=== PATIENT | male | born 1990 | race African-American/Black ===

== ENCOUNTER 2016-12-27 02:05 | Emergency (ER) | payer MEDICARE, OTHER ==
[~2016-12-27] VITALS: Ht 188 cm; Wt 89.0 kg
[~2016-12-27 02:05] MED LIST: DIVA500T7 PO; [UNRECOGNIZED DRUG - REMARK] PO; [UNRECOGNIZED DRUG - REMARK] PO
[2016-12-27 02:20] VITALS: Ht 188 cm; Wt 89.0 kg
[2016-12-27] MEDS ORDERED: BACI28.34 TOP (04:09)
[2016-12-27] MEDS ORDERED: ACET500C5 PO (04:09)
[2016-12-27] MEDS ORDERED: IBUP400T22 PO (04:09)
[2016-12-27] MEDS ORDERED: ACETAMINOPHEN 325 MG TAB PO ONE (04:30)
[2016-12-27] MEDS ORDERED: HC30CR25 TOP (04:38)
[2016-12-27 04:41] VITALS: BP 135/95; PULSE 71; RESP 20
--- NOTE | 2016-12-27 05:03 | ERD ---
ER Documentation Chief Complaint Date/Time DATE: 12/27/16 TIME: 05:02 Chief Complaint Foot callus and bug bites or rash HPI 26-year-old male comes in with foot calluses to both of his feet, also bug bites to his face. Patient states that he has painful calluses to both of his feet, states that he plays basketball and walks a lot as well. He has seen podiatry in the past, he states that the were shaved down previously, and foot pads with Dr. Thomas's has not helped him much. He also states that he has multiple bites to his forehead that are itchy. ROS All systems reviewed and are negative except as per history of present illness. Medications Home Meds Active Scripts Hydrocortisone* Topical (Hydrocortisone* Topical) 2.5%-28.3 Gm Cream..g., 1 APPLIC TOP BID, #1 TUB Prov:NEVILLE CASAREZ PA-C 12/27/16 Ibuprofen* (Motrin*) 400 Mg Tab, 400 MG PO Q6, #30 TAB Prov:NEVILLE CASAREZ PA-C 12/27/16 Acetaminophen* (Tylophen*) 500 Mg Capsule, 1 CAP PO Q6H Y for PAIN AND OR ELEVATED TEMP, #20 CAP Prov:NEVILLE CASAREZ PA-C 12/27/16 Bacitracin* (Bacitracin Zinc Oint*) 28.35 Gm Oint, 1 APPLIC TOP BID, #1 TUB APPLI TO Prov:NEVILLE CASAREZ PA-C 12/27/16 Reported Medications [Risperdal, Unk Dose] No Conflict Check, PO DAILY 06/23/13 [Cogentin, Unk Dose] No Conflict Check, PO DAILY 06/23/13 Divalproex Sodium* (Depakote ER*) 500 Mg Tabsr, 1000 MG PO DAILY 06/23/13 Allergies Allergies: Coded Allergies: Penicillins (Verified Allergy, 06/23/13) PMhx/Soc History of Surgery: No Hx Psychiatric Problems: Yes (PSYCHIZOPHRENIA) Hx Miscellaneous Medical Probl: Yes Hx Alcohol Use: No Hx Substance Use: No Hx Tobacco Use: No Smoking Status: Never smoker Physical Exam Vitals Vital Signs Date Time Temp Pulse Resp B/P Pulse Ox O2 Delivery O2 Flow Rate FiO2 12/27/16 04:41 71 20 135/95 100 12/27/16 02:20 99.0 94 20 151/95 100 Physical Exam General: Well-developed, well-nourished. The patient appears in no acute distress. HEENT: Head is normocephalic, atraumatic. No scleral icterus. Neck: Supple. Nontender. Lungs: Clear to auscultation. Normal air movement. Heart: Regular rate and rhythm. S1 and S2 are normal. No murmurs, gallops, or rubs. Abdomen: Nondistended. Extremities: No clubbing or cyanosis. Moving extremities x 4. No weakness. Neurologic: Alert and oriented 3. No focal deficits. Normal speech and gait. Skin: Folliculitis on the forehead. Calluses to both feet Results 24 hrs Current Medications Medications (Trade) Dose Ordered Sig/Luis Armando Route PRN Reason Start Time Stop Time Status Last Admin Dose Admin Acetaminophen (Tylenol Tab) 650 mg ONCE ONCE PO 12/27/16 04:30 12/27/16 04:31 DC 12/27/16 04:36 Procedures/MDM 18-year-old male comes in with calluses to both feet, patient was provided postoperative shoes as a soft sole to apply as needed for his pain. Also comes in with multiple insect bites, no signs of infection, cellulitis. Departure Diagnosis: Primary Impression: Foot callus Additional Impression: Insect bites Condition: Good Patient Instructions: What Are Corns and Calluses?, Insect Bite Additional Instructions: Call your primary care doctor TOMORROW for an appointment during the next 1-2 days.See the doctor sooner or return here if your condition worsens before your appointment time. NEVILLE CASAREZ PA-C Dec 27, 2016 05:03
== END 2016-12-27 04:41 | disposition home or self-care (01) ==
LOC: FTE 02:05
DX: L84 Corns and callosities (principal); S00.86XA Insect bite (nonvenomous) of other part of head, initial encounter; W57.XXXA Bitten or stung by nonvenomous insect and other nonvenomous arthropods, initial encounter; Y92.9 Unspecified place or not applicable
CPT/HCPCS: 99283